=== PATIENT | female | born 1930 | race Caucasian/White ===

== ENCOUNTER 2017-07-01 17:14 | Inpatient (IN) | payer OTHER ==
[~2017-07-01] VITALS: Ht 162.6 cm; Wt 47.6 kg
[2017-07-01] MEDS ORDERED: NAMENDA10 MG PO (18:05)
[2017-07-01] MEDS ORDERED: ARICEPT10 MG PO (18:06)
[2017-07-12] MEDS ORDERED: ARICEPT10 MG PO (13:59)
[2017-07-12] MEDS ORDERED: ISOSORBIDE MONO30 MG PO (13:59)
[2017-07-12] MEDS ORDERED: HYDRALAZINE HCL50 MG PO (13:59)
[2017-07-12] MEDS ORDERED: Coreg 3.125MG TABLET PO (13:59)
[2017-07-12] MEDS ORDERED: LIPITOR40 MG PO (13:59)
[2017-07-12] MEDS ORDERED: ASA-EC81 MG PO (13:59)
== END 2017-07-12 14:46 | disposition other institution (70) | DRG 177 ==
LOC: ER 17:14 → MEDI 23:43
PROVIDERS: Surgery
PROC: 4A033R1 Measurement of Arterial Saturation, Peripheral, Percutaneous Approach (ICD-10-PCS; 2017-07-01)
PROC: 3E0F7GC Introduction of Other Therapeutic Substance into Respiratory Tract, Via Natural or Artificial Opening (ICD-10-PCS; 2017-07-02)
PROC: BB24ZZZ Computerized Tomography (CT Scan) of Bilateral Lungs (ICD-10-PCS; 2017-07-02)
PROC: B246ZZZ Ultrasonography of Right and Left Heart (ICD-10-PCS; 2017-07-02)
PROC: 0DH63UZ Insertion of Feeding Device into Stomach, Percutaneous Approach (ICD-10-PCS; principal; 2017-07-09 15:15)
DX: J69.0 Pneumonitis due to inhalation of food and vomit (principal); I21.4 Non-ST elevation (NSTEMI) myocardial infarction; I50.23 Acute on chronic systolic (congestive) heart failure; N39.0 Urinary tract infection, site not specified; N17.8 Other acute kidney failure; G31.09 Other frontotemporal neurocognitive disorder; F02.80 Dementia in other diseases classified elsewhere, unspecified severity, without behavioral disturbance, psychotic disturbance, mood disturbance, and anxiety; Z74.01 Bed confinement status; B96.20 Unspecified Escherichia coli [E. coli] as the cause of diseases classified elsewhere; Z16.12 Extended spectrum beta lactamase (ESBL) resistance; R13.19 Other dysphagia; Z66 Do not resuscitate; L89.310 Pressure ulcer of right buttock, unstageable

== ENCOUNTER 2018-01-17 12:11 | Inpatient (IN) | payer OTHER ==
[~2018-01-17] VITALS: Ht 162.6 cm; Wt 100.0 kg
[~2018-01-17 12:11] MED LIST: ARICEPT10 MG PO; ASA-EC81 MG PO; Coreg 3.125MG TABLET PO; HYDRALAZINE HCL50 MG PO; ISOSORBIDE MONO30 MG PO; LIPITOR40 MG PO; NAMENDA10 MG PO
[2018-01-17] MEDS ORDERED: COZAAR100 MG (12:51)
[2018-02-01] MEDS ORDERED: CYANOCOBAL1000 MCG/1 IM (14:27)
[2018-02-01] MEDS ORDERED: ISOSORBIDE MONO30 MG PO (14:27)
[2018-02-01] MEDS ORDERED: FOLIC ACID1 MG PO (14:27)
[2018-02-01] MEDS ORDERED: LIPITOR40 MG PO (14:27)
[2018-02-01] MEDS ORDERED: ASA-EC81 MG PO (14:27)
[2018-02-01] MEDS ORDERED: PANTOPRAZOLE SO40 MG PO (14:27)
[2018-02-01] MEDS ORDERED: INTEGRA PLUS C1 EACH PO (14:27)
[2018-02-01] MEDS ORDERED: PRE PROTEIN 2030 ML NGT (14:27)
[2018-02-01] MEDS ORDERED: AMLODIPINE BESYL5 MG PO (14:27)
[2018-02-01] MEDS ORDERED: Coreg 3.125MG TABLET PO (14:27)
[2018-02-01] MEDS ORDERED: ARICEPT10 MG PO (14:27)
== END 2018-02-01 17:55 | disposition home health service (06) | DRG 689 ==
LOC: ER 12:11 → MEDJ 18:41 → SEC-K 21:15 → SURH 22:45 → MEDJ 01-18 10:17
PROC: 4A033R1 Measurement of Arterial Saturation, Peripheral, Percutaneous Approach (ICD-10-PCS; principal; 2018-01-17)
PROC: BW28ZZZ Computerized Tomography (CT Scan) of Head (ICD-10-PCS; 2018-01-17)
PROC: B246ZZZ Ultrasonography of Right and Left Heart (ICD-10-PCS; 2018-01-17)
PROC: 8E0ZXY6 Isolation (ICD-10-PCS; 2018-01-17)
PROC: 3E0F7GC Introduction of Other Therapeutic Substance into Respiratory Tract, Via Natural or Artificial Opening (ICD-10-PCS; 2018-01-20)
PROC: 30233N1 Transfusion of Nonautologous Red Blood Cells into Peripheral Vein, Percutaneous Approach (ICD-10-PCS; 2018-01-28)
PROC: 0D20XUZ Change Feeding Device in Upper Intestinal Tract, External Approach (ICD-10-PCS; 2018-01-31)
DX: N39.0 Urinary tract infection, site not specified (principal); I21.4 Non-ST elevation (NSTEMI) myocardial infarction; I13.0 Hypertensive heart and chronic kidney disease with heart failure and stage 1 through stage 4 chronic kidney disease, or unspecified chronic kidney disease; E87.0 Hyperosmolality and hypernatremia; N17.8 Other acute kidney failure; K94.23 Gastrostomy malfunction; B37.49 Other urogenital candidiasis; D62 Acute posthemorrhagic anemia; I50.30 Unspecified diastolic (congestive) heart failure; L89.152 Pressure ulcer of sacral region, stage 2; N18.1 Chronic kidney disease, stage 1; G30.1 Alzheimer's disease with late onset; F02.80 Dementia in other diseases classified elsewhere, unspecified severity, without behavioral disturbance, psychotic disturbance, mood disturbance, and anxiety; Z74.01 Bed confinement status; E86.0 Dehydration; B96.29 Other Escherichia coli [E. coli] as the cause of diseases classified elsewhere; Z16.12 Extended spectrum beta lactamase (ESBL) resistance; D50.8 Other iron deficiency anemias; D51.3 Other dietary vitamin B12 deficiency anemia; D53.0 Protein deficiency anemia; R13.19 Other dysphagia; Z22.322 Carrier or suspected carrier of Methicillin resistant Staphylococcus aureus; B95.2 Enterococcus as the cause of diseases classified elsewhere; L89.892 Pressure ulcer of other site, stage 2